=== PATIENT | male | born 1955 | race Caucasian/White ===

== ENCOUNTER 2017-04-22 09:40 | Day surgery (SDC) | payer BC ==
[~2017-04-22 09:40] MED LIST: Metoclopramide 10 MG/2 ML SDV IV PRN; Sodium Chloride 0.9% 1,000 ML IV SCH; Sodium Chloride 0.9% 10 ML Syringe FLUSH PRN
[2017-04-22] MEDS ORDERED: Propofol 1,000 MG/100 ML SDV ONE (11:35)
[2017-04-22] MEDS ORDERED: Propofol 200 MG/20 ML SDV ONE (11:40)
[2017-04-22 15:38] VITALS: BP 156/76
--- NOTE | 2017-04-22 15:57 | OR ---
DATE OF OPERATION: 04/22/2017 PREOPERATIVE DIAGNOSES: 1. History of Shields's esophagus. 2. Screening colonoscopy. POSTOPERATIVE DIAGNOSES: 1. Irregular Z-line. 2. Mild to moderate gastritis. 3. Rectosigmoid polyp. 4. Otherwise normal colonoscopy. OPERATION: 1. Esophagogastroduodenoscopy with biopsy. 2. Screening colonoscopy with cold biopsy polypectomy. COMPLICATIONS: None. DRAINS: None. SPECIMENS: 1. GE junction biopsy. 2. Rectosigmoid polyp. ESTIMATED BLOOD LOSS: Minimal. ANESTHESIA: General propofol anesthesia. INDICATION: Mr. Banks is a 61-year-old gentleman who is here for surveillance of history of Shields's esophagus as well as screening for colon cancer. He is of average risk and is currently asymptomatic. The above-mentioned procedures were explained. The risks, benefits, complications were explained. The patient understood and agreed and was brought to the operating room. DESCRIPTION OF PROCEDURE: The patient was brought to the operating room, placed in the left lateral decubitus position on the operating table. Satisfactory general propofol anesthesia was administered. We began by placing the patient in a 45-degree head-up position and placed a mouth guard into the oral cavity and subsequently placing an endoscope within the oral cavity, and under direct vision, advancing this to the second portion of the duodenum. Evaluation was carried out on withdrawal. The duodenum second portion and first portion appeared normal. The bulb appeared normal. The antrum of the stomach and body of the stomach appeared normal, however, there was a [id number] amount a granular erythematous appearance suggestive of gastritis. Retroflexion was performed, which was within normal limits. On evaluation of the GE junction, there appeared to be a 0.5 cm short segment tongue from the Z-line. This was not significantly abnormal, however, we did biopsy this with a cold biopsy polypectomy. Hemostasis was satisfactory. The remainder of the esophagus was normal. The stomach and esophagus were decompressed and the endoscope was withdrawn. The patient tolerated the procedure well. Next, while the patient was kept asleep, we rotated the bed and performed a colonoscopy. Rectal examination was performed first, which is within normal limits. Then I placed the endoscope by finger introduction into the rectum and subsequently advanced this to the level of the cecum. Cecum was identified by the appendiceal orifice, the cecal strap, and ileocecal valve. Careful evaluation of mucosa was carried out on withdrawal. There were no telangiectasias, no polyps, no neoplastic growths, no diverticula. However, as we approached the rectosigmoid junction, there was a small broad-based polyp, which was less than 0.5 cm. This was removed by cold biopsy polypectomy completely and retrieved. This is passed off for permanent histology. The remainder of the colon was within normal limits. Retroflexion was performed within the rectum and this revealed no significant findings. The colon was decompressed and the endoscope was withdrawn. The patient tolerated the procedure well. There were no complications. Instrument count was correct. The patient was awoken in the OR and taken to the PACU for recovery. SUGEY/ESTER /[id number]
== END 2017-04-22 12:53 | disposition home or self-care (01) ==
LOC: LB.SDS 09:40
PROVIDERS: ATTEND Surgery
DX: Z12.11 Encounter for screening for malignant neoplasm of colon (principal); D12.7 Benign neoplasm of rectosigmoid junction; K20.9 Esophagitis, unspecified; K29.50 Unspecified chronic gastritis without bleeding; Z88.8 Allergy status to other drugs, medicaments and biological substances; E11.9 Type 2 diabetes mellitus without complications; M54.5 Low back pain; R25.2 Cramp and spasm; I25.10 Atherosclerotic heart disease of native coronary artery without angina pectoris; Z79.899 Other long term (current) drug therapy; Z98.890 Other specified postprocedural states
CPT/HCPCS: 43239; 45380; 82962; 88305; J2704; J7040; J3490

== ENCOUNTER 2020-10-01 09:08 | Emergency (ER) | payer MEDICARE, BC ==
--- NOTE | 2020-10-01 10:23 | EDM.PDOC ---
ED HPI GENERAL MEDICAL PROBLEM - General Chief Complaint: General Stated Complaint: DIZZY,SOB,CHILLS,NAUSEA Time Seen by Provider: 10/01/20 10:10 Source of Information: Reports: Patient History Limitations: Reports: No Limitations - History of Present Illness INITIAL COMMENTS - FREE TEXT/NARRATIVE: patient presented to the ER with a c/o SOB and dizziness over the last 2 days. Patient is s/p CABG 10 days ago at [facility]. On Eliquis. Post-op was c/b afib, was started on amiodarone and metoprolol. Reports that patient did well after his surgery but symptoms got worse 2 days go . No CP. No fever or chills. Reports that it takes him few steps before he feels SOB. No abd pain. No nausea or emesis. Onset: Today Quality: Reports: Other Improves with: Reports: None Worsens with: Reports: None Associated Symptoms: Reports: No Other Symptoms - Related Data Allergies Allergy/AdvReac Type Severity Reaction Status Date / Time Vpryrgv-Yzm-Ola Reductase AdvReac Muscle Verified 04/22/17 10:21 Inhibitor Aches Home Meds: Home Meds Amitriptyline [Elavil] 25 mg PO DAILY PRN 04/21/17 [History] Aspirin [Adult Low Dose Aspirin EC] 81 mg PO DAILY 04/21/17 [History] Insulin Glarg,Human.Rec.Analog [Lantus Solostar] 15 units SQ DAILY 04/22/17 [History] Acetaminophen/HYDROcodone [[place] 325-10 MG] 1 tab PO Q4H PRN 10/01/20 [History] Amiodarone [Cordarone] 1 tab PO DAILY 10/01/20 [History] Apixaban [Eliquis] 5 mg PO BID 10/01/20 [History] Docusate Sodium [Colace] 1 cap PO DAILY 10/01/20 [History] Empagliflozin [Jardiance] 1 tab PO DAILY 10/01/20 [History] Insulin Aspart [NovoLOG] 10 units PO TIDAC 10/01/20 [History] Metoprolol Tartrate 1 tab PO BID 10/01/20 [History] Mirtazapine [Remeron] 0.5 mg PO BEDTIME PRN 10/01/20 [History] Nitroglycerin 0.4 mg SL DAILY PRN 10/01/20 [History] Omeprazole Magnesium [Prilosec Otc] 1 cap PO DAILY 10/01/20 [History] atorvaSTATin [Lipitor] 1 tab PO BEDTIME 10/01/20 [History] Past Medical History Cardiovascular History: Reports: Bypass, Hypertension, Stents Gastrointestinal History: Reports: GERD Musculoskeletal History: Reports: Back Pain, Chronic Psychiatric History: Reports: Depression Endocrine/Metabolic History: Reports: Diabetes, Type II - Past Surgical History Cardiovascular Surgical History: Reports: Coronary Artery Stent GI Surgical History: Reports: Colonoscopy, EGD Other Musculoskeletal Surgeries/Procedures:: 2 back surgeries Social & Family History - Family History Family Medical History: No Pertinent Family History - Tobacco Use Tobacco Use Status *Q: Former Tobacco User Used Tobacco, but Quit: Yes Month/Year Tobacco Last Used: 1989 Second Hand Smoke Exposure: No - Caffeine Use Caffeine Use: Reports: Coffee, Soda - Recreational Drug Use Recreational Drug Use: No ED ROS GENERAL - Review of Systems Review Of Systems: See Below Constitutional: Reports: No Symptoms HEENT: Reports: No Symptoms Respiratory: Reports: Shortness of Breath Cardiovascular: Reports: Dyspnea on Exertion GI/Abdominal: Reports: No Symptoms Neurological: Reports: No Symptoms Psychiatric: Reports: No Symptoms ED EXAM, GENERAL - Physical Exam Exam: See Below Exam Limited By: No Limitations General Appearance: Alert Nose: Normal Inspection Head: Atraumatic Respiratory/Chest: No Respiratory Distress, Other (b/l basal fine crackles ) Cardiovascular: Regular Rate, Rhythm GI/Abdominal: Normal Bowel Sounds Extremities: Pedal Edema Neurological: Alert, Oriented, Normal Gait Course - Vital Signs Last Recorded V/S: Last Vital Signs Temp 37.2 C 10/01/20 09:23 Pulse 70 10/01/20 13:31 Resp 24 H 10/01/20 12:15 BP 127/74 10/01/20 13:31 Pulse Ox 88 L 10/01/20 12:15 - Orders/Labs/Meds Orders: Active Orders 24 hr Category Date Time Status EKG Documentation Completion [RC] ASDIRECTED Care 10/01/20 10:02 Active Chest 1V Frontal [CR] Stat Exams 10/01/20 10:00 Taken Chest w Cont [CT] Stat Exams 10/01/20 10:49 Taken Iopamidol [Isovue-370 (76%)] Med 10/01/20 10:58 Active 100 ml IV . DIRECTED PRN Sodium Chloride 0.9% [Normal Saline] Med 10/01/20 11:00 Active 50 ml FLUSH ONETIME Sodium Chloride 0.9% [Normal Saline] 1,000 ml Med 10/01/20 12:45 Active IV ASDIRECTED Medication Orders Sodium Chloride (Normal Saline) 1,000 mls @ 250 mls/hr IV ASDIRECTED DEYANIRA Last Admin: 10/01/20 12:33 Dose: 250 mls/hr Documented by: TRISTEN Iopamidol (Isovue-370 (76%)) 100 ml IV . DIRECTED PRN PRN Reason: RADIOLOGY EXAM Stop: 10/02/20 10:59 Last Admin: 10/01/20 11:16 Dose: 100 ml Documented by: ODETTE Sodium Chloride (Normal Saline) 50 ml FLUSH ONETIME DEYANIRA Last Admin: 10/01/20 11:14 Dose: 70 ml Documented by: ODETTE Labs: Laboratory Tests 10/01/20 10/01/20 10/01/20 Range/Units 10:15 10:20 10:20 WBC 8.1 D (4.0-11.0) K/uL RBC 3.26 L (4.50-6.50) M/uL Hgb 10.5 L D (13.0-18.0) g/dL Hct 31.7 L D (40.0-54.0) % MCV 97 H (76-96) fL MCH 32.2 H (27.0-32.0) pg MCHC 33.1 (31.0-35.0) g/dL RDW 13.8 (11.0-16.0) % Plt Count 135 L D (150-400) K/uL MPV 10.4 H (6.0-10.0) fL Neut % (Auto) 78.8 H (45.0-70.0) % Lymph % (Auto) 12.4 L (20.0-40.0) % [place] % (Auto) 8.2 (3.0-10.0) % Eos % (Auto) 0.4 L (1.0-5.0) % Baso % (Auto) 0.2 (0.0-0.5) % Neut # (Auto) 6.37 (2.00-7.50) K/uL Lymph # (Auto) 1.00 L (1.50-4.00) K/uL [place] # (Auto) 0.66 (0.20-0.80) K/uL Eos # (Auto) 0.03 L (0.04-0.40) K/uL Baso # (Auto) 0.02 (0.02-0.10) K/uL D-Dimer, Quantitative 1250 H (0-400) ng/mL Sodium 134 L (136-145) mmol/L Potassium 4.3 (3.5-5.1) mmol/L Chloride 99 (98-107) mmol/L Carbon Dioxide 22.6 D (21.0-32.0) mmol/L Anion Gap 16.7 H (5.0-15.0) mmol/L BUN 18 (8-26) mg/dL Creatinine 0.99 (0.70-1.30) mg/dL Est Cr Clr Drug Dosing 68.62 mL/min Estimated GFR (MDRD) > 60 (>60) MLS/MIN BUN/Creatinine Ratio 18.2 (6-25) Glucose 292 H D (74-100) mg/dL Calcium 8.2 L (8.5-10.1) mg/dL Troponin I < 0.017 (0.000-0.060) ng/mL B-Natriuretic Peptide 1557 H D (0-125) pg/mL SARS-CoV-2 RNA (NATHALY) (NEGATIVE) 10/01/20 Range/Units 10:29 WBC (4.0-11.0) K/uL RBC (4.50-6.50) M/uL Hgb (13.0-18.0) g/dL Hct (40.0-54.0) % MCV (76-96) fL MCH (27.0-32.0) pg MCHC (31.0-35.0) g/dL RDW (11.0-16.0) % Plt Count (150-400) K/uL MPV (6.0-10.0) fL Neut % (Auto) (45.0-70.0) % Lymph % (Auto) (20.0-40.0) % [place] % (Auto) (3.0-10.0) % Eos % (Auto) (1.0-5.0) % Baso % (Auto) (0.0-0.5) % Neut # (Auto) (2.00-7.50) K/uL Lymph # (Auto) (1.50-4.00) K/uL [place] # (Auto) (0.20-0.80) K/uL Eos # (Auto) (0.04-0.40) K/uL Baso # (Auto) (0.02-0.10) K/uL D-Dimer, Quantitative (0-400) ng/mL Sodium (136-145) mmol/L Potassium (3.5-5.1) mmol/L Chloride (98-107) mmol/L Carbon Dioxide (21.0-32.0) mmol/L Anion Gap (5.0-15.0) mmol/L BUN (8-26) mg/dL Creatinine (0.70-1.30) mg/dL Est Cr Clr Drug Dosing mL/min Estimated GFR (MDRD) (>60) MLS/MIN BUN/Creatinine Ratio (6-25) Glucose (74-100) mg/dL Calcium (8.5-10.1) mg/dL Troponin I (0.000-0.060) ng/mL B-Natriuretic Peptide (0-125) pg/mL SARS-CoV-2 RNA (NATHALY) Negative (NEGATIVE) Meds: Medications Generic Name Dose Route Start Last Admin Trade Name Freq PRN Reason Stop Dose Admin Sodium Chloride 1,000 mls @ 250 mls/hr 10/01/20 12:45 10/01/20 12:33 Normal Saline IV 250 mls/hr ASDIRECTED DEYANIRA Administration Iopamidol 100 ml 10/01/20 10:58 10/01/20 11:16 Isovue-370 (76%) IV 10/02/20 10:59 100 ml . DIRECTED PRN Administration RADIOLOGY EXAM Sodium Chloride 50 ml 10/01/20 11:00 10/01/20 11:14 Normal Saline FLUSH 70 ml ONETIME DEYANIRA Administration Discontinued Medications Generic Name Dose Route Start Last Admin Trade Name Freq PRN Reason Stop Dose Admin Furosemide 20 mg 10/01/20 11:37 10/01/20 11:52 Lasix IVPUSH 10/01/20 11:38 20 mg NOW ONE Administration Furosemide Confirm 10/01/20 11:58 10/01/20 11:57 Lasix Administered 10/01/20 11:59 Not Given Dose 40 mg .ROUTE .STK-MED ONE Metoprolol Tartrate 5 mg 10/01/20 12:19 10/01/20 12:20 Lopressor IVPUSH 10/01/20 12:20 5 mg ONETIME ONE Administration - Re-Assessments/Exams Free Text/Narrative Re-Assessment/Exam: Upon arrival to the ER, patient was connected to a monitor. VS showed BP of 125/82 and HR 75. CXR showed left pulm haziness. Labs significant for drop oh Hgb, elevated Ddimer and BNP. Normal Trop, WBC and kidney function. Given the c/o SOB, and drop of Hgb in terms of a recent surgery - decision was t o rule out PE, cardiac tamponade, post-op atelectasis, pneumonia or AAA. CT chest w contrast was done - showed the followin- b/l pleural effusion 2- large pericardial tamponade, possible hemopericardium 3- small subsegmental PEs while in the ER, patient developed an afib w RVR - HR jumped to 130. Lopressor 5mg IV was given IV fluids was started at 125ml/hr HR responded well, down to 70, converted to NSR. BP remained WNL. Given the above findings, consulted with decision to transfer patient back to [facility], where he had his original surgery. Discussed the case with Dr. Dennis - cardiac surgeon - who agreed to accept the patient back for pleurocentesis. No further intervention was recommended beside what's being done. Departure - Departure Time of Disposition: 13:44 Disposition: DC/Tfer to Acute Hospital 02 Condition: Fair Clinical Impression: Pericardial effusion with cardiac tamponade, Multiple subsegmental pulmonary emboli without acute cor pulmonale, Pleural effusion, Atelectasis of both lungs, Acute blood loss anemia, SOB (shortness of breath) on exertion, Atrial fibrillation with RVR - Discharge Information *PRESCRIPTION DRUG MONITORING PROGRAM REVIEWED*: Not Applicable *COPY OF PRESCRIPTION DRUG MONITORING REPORT IN PATIENT RADHIKA: Not Applicable Referrals: Jorden Camara MD [Primary Care Provider] - Forms: ED Department Discharge Sepsis Event Note (ED) - Evaluation Sepsis Screening Result: No Definite Risk - Focused Exam Vital Signs: Vital Signs Temp Pulse Pulse Resp BP BP Pulse Ox 10/01/20 13:31 70 127/74 10/01/20 13:15 74 125/81 10/01/20 13:00 70 131/72 10/01/20 12:45 75 123/79 10/01/20 12:32 63 117/65 10/01/20 12:20 121 H 126/78 10/01/20 12:15 133 H 24 H 126/78 88 L 10/01/20 11:40 74 16 107/65 98 10/01/20 11:33 77 25 H 107/65 98 10/01/20 09:23 37.2 C 82 28 H 138/81 96 - Problem List & Annotations (1) Acute blood loss anemia SNOMED Code(s): 402367146 Code(s): D62 - ACUTE POSTHEMORRHAGIC ANEMIA Status: Acute Priority: Medium Current Visit: Yes (2) Atelectasis of both lungs SNOMED Code(s): 59221651 Code(s): J98.11 - ATELECTASIS Status: Acute Priority: Medium Current Visit: Yes (3) Atrial fibrillation with RVR SNOMED Code(s): 812942854888912 Code(s): I48.91 - UNSPECIFIED ATRIAL FIBRILLATION Status: Acute Priority: Medium Current Visit: Yes (4) Multiple subsegmental pulmonary emboli without acute cor pulmonale SNOMED Code(s): 99812544 Code(s): I26.94 - MULT SUBSEGMENTAL PULMON EMBOLI WITHOUT ACUTE COR PULMONALE Status: Acute Priority: High Current Visit: Yes (5) Pericardial effusion with cardiac tamponade SNOMED Code(s): 126664521 Code(s): I31.3 - PERICARDIAL EFFUSION (NONINFLAMMATORY); I31.4 - CARDIAC TAMPONADE Status: Acute Priority: High Current Visit: Yes (6) Pleural effusion SNOMED Code(s): 69714027 Code(s): J90 - PLEURAL EFFUSION, NOT ELSEWHERE CLASSIFIED Status: Acute Priority: Medium Current Visit: Yes (7) SOB (shortness of breath) on exertion SNOMED Code(s): 88740107 Code(s): R06.02 - SHORTNESS OF BREATH Status: Acute Priority: Medium Current Visit: Yes - Problem List Review Problem List Initiated/Reviewed/Updated: Yes - My Orders Last 24 Hours: My Active Orders 10/01/20 10:00 Chest 1V Frontal [CR] Stat 10/01/20 10:02 EKG Documentation Completion [RC] ASDIRECTED 10/01/20 10:49 Chest w Cont [CT] Stat 10/01/20 10:58 Iopamidol [Isovue-370 (76%)] 100 ml IV . DIRECTED PRN 10/01/20 11:00 Sodium Chloride 0.9% [Normal Saline] 50 ml FLUSH ONETIME 10/01/20 12:45 Sodium Chloride 0.9% [Normal Saline] 1,000 ml IV ASDIRECTED - Assessment/Plan Last 24 Hours: My Active Orders 10/01/20 10:00 Chest 1V Frontal [CR] Stat 10/01/20 10:02 EKG Documentation Completion [RC] ASDIRECTED 10/01/20 10:49 Chest w Cont [CT] Stat 10/01/20 10:58 Iopamidol [Isovue-370 (76%)] 100 ml IV . DIRECTED PRN 10/01/20 11:00 Sodium Chloride 0.9% [Normal Saline] 50 ml FLUSH ONETIME 10/01/20 12:45 Sodium Chloride 0.9% [Normal Saline] 1,000 ml IV ASDIRECTED Plan: - close cardiac monitoring - intervention needed is a cardiac tamponade window - needs an OR and ICU bed for this - discussed with his Cardiac surgeon In [place] who agreed - transfer by air . clinically stable upon transfer
[2020-10-01] MEDS: Sodium Chloride 0.9% 50 ML SDV FLUSH SCH (11:14)
[2020-10-01] MEDS: Iopamidol 755 Mg/ML 100 ML Bottle IV PRN (11:16)
[2020-10-01] MEDS: Furosemide 40 MG/4 ML VIAL IVPUSH ONE (11:52)
[2020-10-01] MEDS: Furosemide 40 MG/4 ML VIAL ONE (11:57)
[2020-10-01] MEDS ORDERED: Metoprolol Tartrate 5 MG in Sodium Chloride 0.9% 50 ML IV ONE (12:16)
[2020-10-01] MEDS: Metoprolol Tartrate 5 MG/5 ML SDV IVPUSH ONE (12:20)
[2020-10-01] MEDS: Sodium Chloride 0.9% 1,000 ML IV SCH (12:33)
[2020-10-01 13:32] VITALS: BP 127/74; PULSE 70
--- NOTE | 2020-10-02 08:16 | CR ---
Date of Service: 10/01/20 Clinical Data: cardiac symptoms AP CHEST: Comparison is made to a prior exam dated 05/11/13. The patient is status post median sternotomy. The heart is enlarged. There is increased density in the left lung base that obscures the left hemidiaphragm consistent with basilar atelectasis or infiltrate. Pneumonia should be considered. There is slight blunting of the left costophrenic angle consistent with small left pleural effusion. The right lung is clear. No pneumothorax. [id number] [facility]
--- NOTE | 2020-10-02 08:25 | CT ---
Date of Service: 10/01/20 Clinical Data: SOB ENHANCED CHEST CT: Multislice axial acquisition with IV contrast was performed. No priors. There are subtle small filling defects noted within the subsegmental arteries of the left lower lobe suspicious for small PE. No other filling defects bilaterally. No pneumothorax. There are moderate-sized bilateral pleural effusion, left greater than right. There is a large pericardial effusion. The heart size is within normal limits. There are coronary artery calcifications. The patient is status post coronary artery bypass grafting. There are atelectatic changes of the dependent portion of both lungs and in both lung bases with a small area of consolidation in the left lung base. No aortic aneurysm or dissection. There is a mildly enlarged lymph node adjacent to the aortic arch on the left. No other enlarged lymph nodes. I do not see any other significant findings. Abnormal exam. Small filling defects in subsegmental arteries of left lower lobe suspicious for small PE. Multiple other findings as discussed above. The patient's physician was notified of the findings by telephone and by [facility] preliminary radiology report. [id number] MTD
== END 2020-10-01 13:52 ==
LOC: LB.ED 09:08
DX: I26.94 Multiple subsegmental thrombotic pulmonary emboli without acute cor pulmonale (principal); I31.3 Pericardial effusion (noninflammatory); J90 Pleural effusion, not elsewhere classified; J98.11 Atelectasis; D62 Acute posthemorrhagic anemia; I48.91 Unspecified atrial fibrillation; I10 Essential (primary) hypertension; K21.9 Gastro-esophageal reflux disease without esophagitis; E11.9 Type 2 diabetes mellitus without complications; Z87.891 Personal history of nicotine dependence; Z79.4 Long term (current) use of insulin; Z79.01 Long term (current) use of anticoagulants; Z79.899 Other long term (current) drug therapy; Z88.8 Allergy status to other drugs, medicaments and biological substances; Z20.822 Contact with and (suspected) exposure to COVID-19
CPT/HCPCS: 36415; 71045; 71260; 80048; 83880; 84484; 85025; 85379; 93005; 96374; 96375; 99285; 99285-25; J1940; J3490; J7030; Q9967; U0002

== ENCOUNTER 2020-12-11 09:55 | Emergency (ER) | payer MEDICARE, BC ==
[2020-12-11] MEDS ORDERED: Sodium Chloride 0.9% 10 ML Syringe FLUSH PRN (09:56)
--- NOTE | 2020-12-11 09:58 | EDM.PDOC ---
ED HPI GENERAL MEDICAL PROBLEM - General Chief Complaint: Chest Pain Stated Complaint: CHEST PAIN Time Seen by Provider: 12/11/20 09:50 Source of Information: Reports: Patient History Limitations: Reports: No Limitations - History of Present Illness INITIAL COMMENTS - FREE TEXT/NARRATIVE: patient with a h/o CAD s/p CABG 4 months ago, who presented to the ER from cardiac rehab due to chest discomfort. Patient reports it as a burning sensation that lasted for several minutes. He Reports it has been happening everyday since he switched from Nexium to omeprazole. He reports that it has nothing to do with activities, but it gets worse after eating or drinking, especially, [place] juice or coffee. He is on Coumadin and ASA. also has a pacemaker. No CP or SOB at time of arrival to the ER. Today's cardiac Rehab visit was #9, and he have done well in the previous ones. Denies occasional dizziness or palpitations Onset: Today Duration: Minutes: (30) - Related Data Allergies Allergy/AdvReac Type Severity Reaction Status Date / Time [id number] Reductase AdvReac Muscle Verified 04/22/17 10:21 Inhibitor Aches Home Meds: Home Meds Amitriptyline [Elavil] 25 mg PO DAILY PRN 04/21/17 [History] Aspirin [Adult Low Dose Aspirin EC] 81 mg PO DAILY 04/21/17 [History] Insulin Glarg,Human.Rec.Analog [Lantus Solostar] 15 units SQ DAILY 04/22/17 [History] Acetaminophen/HYDROcodone [[place] 325-10 MG] 1 tab PO Q4H PRN 10/01/20 [History] Amiodarone [Cordarone] 1 tab PO DAILY 10/01/20 [History] Apixaban [Eliquis] 5 mg PO BID 10/01/20 [History] Docusate Sodium [Colace] 1 cap PO DAILY 10/01/20 [History] Empagliflozin [Jardiance] 1 tab PO DAILY 10/01/20 [History] Insulin Aspart [NovoLOG] 10 units PO TIDAC 10/01/20 [History] Metoprolol Tartrate 1 tab PO BID 10/01/20 [History] Mirtazapine [Remeron] 0.5 mg PO BEDTIME PRN 10/01/20 [History] Nitroglycerin 0.4 mg SL DAILY PRN 10/01/20 [History] Omeprazole Magnesium [Prilosec Otc] 1 cap PO DAILY 10/01/20 [History] atorvaSTATin [Lipitor] 1 tab PO BEDTIME 10/01/20 [History] Past Medical History Cardiovascular History: Reports: Bypass, Hypertension, Stents Gastrointestinal History: Reports: GERD Musculoskeletal History: Reports: Back Pain, Chronic Psychiatric History: Reports: Depression Endocrine/Metabolic History: Reports: Diabetes, Type II - Past Surgical History Cardiovascular Surgical History: Reports: Coronary Artery Stent GI Surgical History: Reports: Colonoscopy, EGD Other Musculoskeletal Surgeries/Procedures:: 2 back surgeries Social & Family History - Family History Family Medical History: No Pertinent Family History - Caffeine Use Caffeine Use: Reports: Coffee, Soda ED ROS GENERAL - Review of Systems Review Of Systems: See Below Constitutional: Reports: No Symptoms HEENT: Reports: No Symptoms Cardiovascular: Reports: Chest Pain GI/Abdominal: Reports: No Symptoms Musculoskeletal: Reports: No Symptoms Skin: Reports: No Symptoms Neurological: Reports: No Symptoms ED EXAM, GENERAL - Physical Exam Exam: See Below Exam Limited By: No Limitations General Appearance: Alert, WD/WN, No Apparent Distress Respiratory/Chest: No Respiratory Distress, Lungs Clear Cardiovascular: Normal Peripheral Pulses, Regular Rate, Rhythm GI/Abdominal: Normal Bowel Sounds, Soft, Non-Tender Back Exam: Normal Inspection Extremities: Normal Inspection, Normal Range of Motion. No: Pedal Edema Neurological: Alert, Oriented, No Motor/Sensory Deficits Psychiatric: Normal Affect #1 Interpretation EKG Date: 12/11/20 Rhythm: NSR Rate (Beats/Min): 75 Ramer: Normal P-Wave: Present QRS: Normal ST-T: Normal QT: Normal Course - Vital Signs Last Recorded V/S: Last Vital Signs Temp 36.7 C 12/11/20 10:00 Pulse 66 12/11/20 10:00 Resp 16 12/11/20 10:00 BP 141/71 H 12/11/20 10:00 Pulse Ox 95 12/11/20 10:00 - Orders/Labs/Meds Orders: Active Orders 24 hr Category Date Time Status EKG Documentation Completion [RC] ASDIRECTED Care 12/11/20 09:57 Active Saline Lock Insert [OM.PC] Routine Oth 12/11/20 09:56 Ordered Labs: Laboratory Tests 12/11/20 12/11/20 Range/Units 10:00 10:05 WBC 5.6 D (4.0-11.0) K/uL RBC 4.59 (4.50-6.50) M/uL Hgb 13.6 D (13.0-18.0) g/dL Hct 41.4 D (40.0-54.0) % MCV 90 (76-96) fL MCH 29.6 (27.0-32.0) pg MCHC 32.9 (31.0-35.0) g/dL RDW 16.0 (11.0-16.0) % Plt Count 111 L (150-400) K/uL MPV 10.1 H (6.0-10.0) fL Sodium 136 (136-145) mmol/L Potassium 4.4 (3.5-5.1) mmol/L Chloride 99 (98-107) mmol/L Carbon Dioxide 21.9 (21.0-32.0) mmol/L Anion Gap 19.5 H (5.0-15.0) mmol/L BUN 19 (8-26) mg/dL Creatinine 1.07 (0.70-1.30) mg/dL Est Cr Clr Drug Dosing TNP Estimated GFR (MDRD) > 60 (>60) MLS/MIN BUN/Creatinine Ratio 17.8 (6-25) Glucose 333 H (74-100) mg/dL Calcium 8.9 (8.5-10.1) mg/dL Troponin I < 0.017 (0.000-0.060) ng/mL Meds: Medications Discontinued Medications Generic Name Dose Route Start Last Admin Trade Name Freq PRN Reason Stop Dose Admin Sodium Chloride 10 ml 12/11/20 09:56 Sodium Chloride 0.9% 10 Ml Syringe FLUSH ASDIRECTED PRN Keep Vein Open - Re-Assessments/Exams Free Text/Narrative Re-Assessment/Exam: patient was connected to a monitor vitals stable no symptoms currently EKG - paced rhythm. no ischemic changes CXR - WNL, no infiltrates Labs - CBC, BMP and Trop no leukocytosis, normal Trop BS is elevated - patient didn't take his insulin today. Departure - Departure Time of Disposition: 11:12 Disposition: Home, Self-Care 01 Condition: Good Clinical Impression: Atypical chest pain Gastroesophageal reflux disease Qualifiers: Esophagitis presence: with esophagitis Esophagitis bleeding: without hemorrhage Qualified Code(s): K21.00 - Gastro-esophageal reflux disease with esophagitis, without bleeding Referrals: PCP,None [Primary Care Provider] - Forms: ED Department Discharge Additional Instructions: - Resume home meds as before - Start taking Nexium - follow up with your PCP in 1-2 weeks if symptoms kept recurring - Return to the ER if symptoms got worse, no improving with acid medications or Nitro or any concerns Sepsis Event Note (ED) - Focused Exam Vital Signs: Vital Signs Temp Pulse Resp BP Pulse Ox 12/11/20 10:00 36.7 C 66 16 141/71 H 95 - Problem List & Annotations (1) Atypical chest pain SNOMED Code(s): 542485926 Code(s): R07.89 - OTHER CHEST PAIN Status: Acute Priority: Medium (2) Gastroesophageal reflux disease SNOMED Code(s): 777130835 Code(s): K21.9 - GASTRO-ESOPHAGEAL REFLUX DISEASE WITHOUT ESOPHAGITIS Status: Acute Priority: Medium Qualifiers: Esophagitis presence: with esophagitis Esophagitis bleeding: without hemorrhage Qualified Code(s): K21.00 - Gastro-esophageal reflux disease with esophagitis, without bleeding - Problem List Review Problem List Initiated/Reviewed/Updated: Yes - My Orders Last 24 Hours: My Active Orders 12/11/20 09:56 Saline Lock Insert [OM.PC] Routine 12/11/20 09:57 EKG Documentation Completion [RC] ASDIRECTED - Assessment/Plan Last 24 Hours: My Active Orders 12/11/20 09:56 Saline Lock Insert [OM.PC] Routine 12/11/20 09:57 EKG Documentation Completion [RC] ASDIRECTED Plan: - Resume home meds as before - Start taking Nexium - follow up with your PCP in 1-2 weeks if symptoms kept recurring - Return to the ER if symptoms got worse, no improving with acid medications or Nitro or any concerns
[2020-12-11 10:33] VITALS: PULSE 66
--- NOTE | 2020-12-11 10:38 | CR ---
Date of Service: 12/11/20 Clinical Data: CP AP PORTABLE CHEST: No priors. The patient is status post median sternotomy. There is a cardiac pacer overlying the left chest and the distal pacer wires are in the region of the right atrium and right ventricle. The heart size is within normal limits. Lungs are clear. No pneumothorax. No pleural effusions. No evidence of acute intrathoracic disease. [id number] MTDD
[2020-12-11 11:25] VITALS: BP 132/72
== END 2020-12-11 11:20 | disposition home or self-care (01) ==
LOC: LB.ED 09:55
DX: K21.00 Gastro-esophageal reflux disease with esophagitis, without bleeding (principal); I25.10 Atherosclerotic heart disease of native coronary artery without angina pectoris; E11.9 Type 2 diabetes mellitus without complications; I10 Essential (primary) hypertension; Z95.5 Presence of coronary angioplasty implant and graft; Z95.1 Presence of aortocoronary bypass graft; Z88.8 Allergy status to other drugs, medicaments and biological substances; Z79.82 Long term (current) use of aspirin; Z79.01 Long term (current) use of anticoagulants; Z79.4 Long term (current) use of insulin; Z79.899 Other long term (current) drug therapy
CPT/HCPCS: 36415; 71045; 80048; 84484; 85027; 93005; 99283; 99284-25